=== PATIENT | male | born 1985 | race Caucasian/White ===

== ENCOUNTER 2017-03-10 11:31 | Emergency (ER) | payer MEDICAID ==
[~2017-03-10] VITALS: Ht 182.9 cm; Wt 68.2 kg
[2017-03-10 11:32] VITALS: BP 119/69
== END 2017-03-10 12:17 | disposition home or self-care (01) ==
LOC: ED 12:11
DX: K04.7 Periapical abscess without sinus (principal); F17.200 Nicotine dependence, unspecified, uncomplicated
CPT/HCPCS: 99283